=== PATIENT | male | born 1995 | race Caucasian/White ===

== ENCOUNTER 2022-11-05 00:08 | Emergency (ER) | payer BC ==
[~2022-11-05] VITALS: Ht 157.5 cm; Wt 73.0 kg
[2022-11-05] MEDS ORDERED: SODIUM CHLORIDE 0.9% 1,000 ML IV ONE ×2 (03:00)
[2022-11-05] MEDS: CEFTRIAXONE 1 G PREMIX 50 ML IV NR ×4 (04:45→06:30)
[2022-11-05] MEDS ORDERED: AZITHROMYCIN 500MG/250ML 250 ML IV NR (04:45)
[2022-11-05 04:54] LABS: BASOPHILS % 0.2 % (0.0-2.0); EOSINOPHILS % 0.1 % (0.0-5.0); HEMATOCRIT. 45.7 % (42.0-52.0); HEMOGLOBIN. 15.8 g/dL (14.0-18.0); LYMPHOCYTES % 8.7 % (20.0-50.0); MEAN CORPUSCULAR HEMOGLOBIN 29.4 pg (28.0-32.0); MEAN CORPUSCULAR VOLUME 84.9 fL (80.0-94.0); MEAN PLATELET VOLUME 9.4 fl (7.4-10.4); MONOCYTES % 7.5 % (2.0-8.0); NEUTROPHILS % 83.5 % (40.0-76.0); PLATELET 214 x1000/uL (130-400); RED BLOOD CELL COUNT 5.38 mill/uL (4.7-6.1); RED CELL DISTRIBUTION WIDTH 13.5 % (11.6-14.6)
[2022-11-05 05:01] LABS: CHLORIDE 105 mEq/L (98-107)
[2022-11-05] MEDS ORDERED: AMOX-494 MT (06:16)
[2022-11-05] MEDS ORDERED: AZIT250T12 MT (06:16)
[2022-11-05 07:13] LABS: *AMPHETAMINES SCREEN URINE NEGATIVE (NEGATIVE); *BARBITURATES SCREEN URINE NEGATIVE (NEGATIVE); *BENZODIAZEPINES SCREEN URINE NEGATIVE (NEGATIVE); *COCAINE SCREEN URINE NEGATIVE (NEGATIVE); CANNABINOID URINE SCREEN NEGATIVE (NEGATIVE); METHADONE URINE SCREEN NEGATIVE (NEGATIVE); OPIATES URINE SCREEN NEGATIVE (NEGATIVE); PHENCYCLIDINE URINE SCREEN NEGATIVE (NEGATIVE)
[2022-11-05 10:05] VITALS: BP 119/83
== END 2022-11-05 10:05 | disposition home or self-care (01) ==
LOC: ER 00:08
DX: J18.9 Pneumonia, unspecified organism (principal); E78.00 Pure hypercholesterolemia, unspecified; Z20.822 Contact with and (suspected) exposure to COVID-19
CPT/HCPCS: 36415; 71045; 80053; 80305; 83605; 84443; 84484; 85025; 85379; 87426; 87804; 96361; 96365; 96366; 96368; 99285; C9803; J0696; J7030; Z7610